=== PATIENT | female | born 1955 | race African-American/Black ===

== ENCOUNTER 2019-04-09 12:17 | Emergency (ER) | payer OTHER ==
[~2019-04-09] VITALS: Ht 157.5 cm; Wt 103.0 kg
[2019-04-09 12:21] VITALS: Ht 157.5 cm; Wt 103.0 kg
[2019-04-09 15:06] VITALS: BP 130/82
== END 2019-04-09 15:06 | disposition home or self-care (01) ==
LOC: ED 12:17
DX: M94.0 Chondrocostal junction syndrome [Tietze] (principal); Z88.1 Allergy status to other antibiotic agents
CPT/HCPCS: J1100; J1885